=== PATIENT | male | born 1950 | race Caucasian/White ===

== ENCOUNTER 2023-04-21 07:38 | Inpatient (IN) ==
[2023-04-21] MEDS ORDERED: NS 0.9% 1000 ml BAG 1,000 ML IV ONE (08:25)
[2023-04-21] MEDS ORDERED: Acetaminophen IV 1 GM/100ML 1,000 MG/100 ML BAG IV ONE (08:26)
[2023-04-21 09:03] LABS: ABS Eosinophils 0.1 10^3/uL (0.0-0.5); ABS Monocytes 0.5 10^3/uL (0.0-1.1); ABS Neutrophils 6.5 10^3/uL (1.5-7.6); ABS Nucleated RBC 0.01 10^3/ul; Eosinophil % 1.4 %; Hematocrit 39.3 % (38-53); Hemoglobin 14.1 g/dL (13.2-16.3); Lymphocyte % 12.7 %; Mean Corpuscular Hemoglobin 33.9 pg (27-33); Mean Corpuscular Hgb Conc 35.8 g/dL (31-36); Mean Corpuscular Volume 94.7 fL (80-97); Mean Platelet Volume 8.9 fL (7.5-11.2); Nucleated Red Blood Cells % 0.2 %/100WBC (0.0-0.8); Platelet Count 124 10^3/uL (150-450); Red Blood Count 4.15 10^6/uL (4.06-5.63); Red Cell Distribution Width 14.6 % (12-17); White Blood Count 8.2 10^3/uL (3.6-10.2)
[2023-04-21 09:18] LABS: Calcium 9.1 mg/dL (8.6-10.3); Creatinine, Serum 0.77 mg/dL (0.67-1.17); Potassium 3.8 mmol/L (3.5-5.0); eGFR CKD-EPI 95.1 (>60)
[2023-04-21 09:22] LABS: Albumin 4.3 g/dL (3.2-5.2); Albumin/Globulin Ratio 1.7 (1-3); Globulin 2.5 g/dL (2-4); Total Bilirubin 1.9 mg/dL (0.2-1.0); Total Protein 6.8 g/dL (6.4-8.9)
[2023-04-21] MEDS: NS 0.9% 1000 ml BAG 1,000 ML IV SCH ×2 (12:19→19:56)
[2023-04-21] MEDS: Enoxaparin 40 MG/0.4 ML SYR SUBCUT SCH (16:33)
[2023-04-21 16:37] LABS: Urine Appearance Cloudy; Urine Bilirubin Negative (Negative); Urine Blood Negative (Negative); Urine Color Yellow; Urine Glucose Negative (Negative); Urine Ketones Trace (Negative); Urine Nitrite Negative (Negative); Urine Protein Negative (Negative); Urine Specific Gravity 1.024 (1.002-1.030); Urine Urobilinogen Negative (Negative)
[2023-04-21] MEDS ORDERED: Dextrose 50% Syringe 50 ml 25 GM/50 ML SYRINGE IV PUSH PRN (17:43)
[2023-04-21] MEDS: Carbidopa/Levodop CR 50/200 TAB.CR PO SCH (21:12)
[2023-04-21] MEDS: Carbidopa/Levodop 25/100 MG TAB PO SCH ×2 (21:13→23:04)
[2023-04-21] MEDS: Cholestyramine Resin 4 GM POWDER PO SCH (21:13)
[2023-04-22] MEDS: Carbidopa/Levodop 25/100 MG TAB PO SCH ×4 (01:24→20:31)
[2023-04-22] MEDS: Carbidopa/Levodop CR 50/200 TAB.CR PO SCH (01:24)
[2023-04-22] MEDS: NS 0.9% 1000 ml BAG 1,000 ML IV SCH ×3 (02:44→14:06)
[2023-04-22 06:37] LABS: ABS Eosinophils 0.1 10^3/uL (0.0-0.5); ABS Lymphocytes 1.4 10^3/uL (1.0-4.8); ABS Monocytes 0.4 10^3/uL (0.0-1.1); ABS Neutrophils 3.9 10^3/uL (1.5-7.6); ABS Nucleated RBC 0.01 10^3/ul; Eosinophil % 2.5 %; Hematocrit 32.8 % (38-53); Hemoglobin 11.6 g/dL (13.2-16.3); Lymphocyte % 23.1 %; Mean Corpuscular Hemoglobin 33.9 pg (27-33); Mean Corpuscular Hgb Conc 35.5 g/dL (31-36); Mean Corpuscular Volume 95.4 fL (80-97); Mean Platelet Volume 9.4 fL (7.5-11.2); Nucleated Red Blood Cells % 0.1 %/100WBC (0.0-0.8); Platelet Count 115 10^3/uL (150-450); Red Blood Count 3.44 10^6/uL (4.06-5.63); Red Cell Distribution Width 14.8 % (12-17); White Blood Count 5.9 10^3/uL (3.6-10.2)
[2023-04-22] MEDS ORDERED: CMCS:SitaGLIPtin 100 mg TAB (NF) PO SCH (09:00)
[2023-04-22] MEDS: Enoxaparin 40 MG/0.4 ML SYR SUBCUT SCH (14:11)
[2023-04-22] MEDS: Cholestyramine Resin 4 GM POWDER PO SCH (20:31)
[2023-04-23 08:37] LABS: ABS Eosinophils 0.2 10^3/uL (0.0-0.5); ABS Lymphocytes 1.2 10^3/uL (1.0-4.8); ABS Monocytes 0.4 10^3/uL (0.0-1.1); Eosinophil % 3.6 %; Hematocrit 33.9 % (38-53); Hemoglobin 12.2 g/dL (13.2-16.3); Lymphocyte % 25.7 %; Mean Corpuscular Hemoglobin 34.4 pg (27-33); Mean Corpuscular Volume 95.6 fL (80-97); Mean Platelet Volume 9.6 fL (7.5-11.2); Platelet Count 127 10^3/uL (150-450); Red Blood Count 3.55 10^6/uL (4.06-5.63); Red Cell Distribution Width 14.4 % (12-17); White Blood Count 4.8 10^3/uL (3.6-10.2)
[2023-04-23 08:51] LABS: Calcium 8.8 mg/dL (8.6-10.3); Creatinine, Serum 0.82 mg/dL (0.67-1.17); Potassium 4.1 mmol/L (3.5-5.0); eGFR CKD-EPI 93.3 (>60)
[2023-04-23 09:15] LABS: Folate 10.48 ng/mL (5.90-24.80)
[2023-04-23] MEDS ORDERED: Magnesium Hydroxide LIQ 30 ML UDC PO PRN (09:46)
[2023-04-23] MEDS ORDERED: Senna TAB 8.6 mg TAB PO PRN (09:46)
[2023-04-23] MEDS ORDERED: Polyethylene Glycol 3350 17 GM PACKET PO PRN (09:46)
[2023-04-23] MEDS: Carbidopa/Levodop 25/100 MG TAB PO SCH ×3 (09:55→20:07)
[2023-04-23 11:10] LABS: Total Bilirubin 0.6 mg/dL (0.2-1.0)
[2023-04-23] MEDS: Enoxaparin 40 MG/0.4 ML SYR SUBCUT SCH (14:58)
[2023-04-23] MEDS: Cholestyramine Resin 4 GM POWDER PO SCH (20:08)
[2023-04-24] MEDS: Carbidopa/Levodop 25/100 MG TAB PO SCH ×3 (10:57→21:55)
[2023-04-24] MEDS: Enoxaparin 40 MG/0.4 ML SYR SUBCUT SCH (12:40)
[2023-04-24] MEDS ORDERED: Cyanocobalamin INJ 1,000 MCG/ML VIAL 1 ML VIAL IM ONE (16:41)
[2023-04-24] MEDS: Cholestyramine Resin 4 GM POWDER PO SCH (21:54)
[2023-04-25] MEDS: Carbidopa/Levodop 25/100 MG TAB PO SCH ×3 (08:53→21:38)
[2023-04-25] MEDS: Enoxaparin 40 MG/0.4 ML SYR SUBCUT SCH (13:52)
[2023-04-25] MEDS: Cholestyramine Resin 4 GM POWDER PO SCH (21:39)
[2023-04-26] MEDS: Carbidopa/Levodop 25/100 MG TAB PO SCH (09:58)
[2023-04-26 10:01] VITALS: BP 110/67
== END 2023-04-26 10:00 | DRG 57 ==
LOC: ED 07:38 → EDHOLD 07:38 → SUATTDRO 11:48 → MED 16:21
PROVIDERS: ADMIT Student in an Organized Health Care Education/Training Program; ATTEND Student in an Organized Health Care Education/Training Program

== ENCOUNTER 2023-04-25 13:05 | Inpatient (IN) ==
[2023-04-26] MEDS ORDERED: Magnesium Hydroxide LIQ 30 ML UDC PO PRN (12:24)
[2023-04-26] MEDS ORDERED: Senna TAB 8.6 mg TAB PO PRN (12:24)
[2023-04-26] MEDS ORDERED: Enoxaparin 40 MG/0.4 ML SYR SUBCUT SCH (13:00)
[2023-04-26] MEDS: Enoxaparin 40 MG/0.4 ML SYR SUBCUT SCH (17:33)
[2023-04-26] MEDS: Cholestyramine Resin 4 GM POWDER PO SCH (21:36)
[2023-04-26] MEDS: Carbidopa/Levodop 25/100 MG TAB PO SCH (21:36)
[2023-04-27 09:08] LABS: ABS Eosinophils 0.2 10^3/uL (0.0-0.5); ABS Lymphocytes 1.1 10^3/uL (1.0-4.8); ABS Monocytes 0.4 10^3/uL (0.0-1.1); ABS Neutrophils 4.7 10^3/uL (1.5-7.6); ABS Nucleated RBC 0.01 10^3/ul; Eosinophil % 2.5 %; Hematocrit 36.5 % (38-53); Hemoglobin 12.8 g/dL (13.2-16.3); Lymphocyte % 17.9 %; Mean Corpuscular Hemoglobin 33.9 pg (27-33); Mean Corpuscular Hgb Conc 35.2 g/dL (31-36); Mean Corpuscular Volume 96.1 fL (80-97); Mean Platelet Volume 8.6 fL (7.5-11.2); Nucleated Red Blood Cells % 0.1 %/100WBC (0.0-0.8); Platelet Count 166 10^3/uL (150-450); Red Blood Count 3.79 10^6/uL (4.06-5.63); Red Cell Distribution Width 15.1 % (12-17); White Blood Count 6.4 10^3/uL (3.6-10.2)
[2023-04-27 09:32] LABS: Albumin 4.2 g/dL (3.2-5.2); Albumin/Globulin Ratio 1.6 (1-3); Calcium 9.4 mg/dL (8.6-10.3); Creatinine, Serum 0.84 mg/dL (0.67-1.17); Globulin 2.6 g/dL (2-4); Potassium 4.2 mmol/L (3.5-5.0); Total Bilirubin 0.7 mg/dL (0.2-1.0); Total Protein 6.8 g/dL (6.4-8.9); eGFR CKD-EPI 92.7 (>60)
[2023-04-27] MEDS: Carbidopa/Levodop 25/100 MG TAB PO SCH ×3 (09:35→20:54)
[2023-04-27] MEDS: Enoxaparin 40 MG/0.4 ML SYR SUBCUT SCH (17:33)
[2023-04-27] MEDS: Cholestyramine Resin 4 GM POWDER PO SCH (21:01)
[2023-04-28] MEDS: Carbidopa/Levodop 25/100 MG TAB PO SCH ×3 (08:46→20:58)
[2023-04-28] MEDS: Enoxaparin 40 MG/0.4 ML SYR SUBCUT SCH (16:50)
[2023-04-28] MEDS: Cholestyramine Resin 4 GM POWDER PO SCH (22:46)
[2023-04-29] MEDS: Carbidopa/Levodop 25/100 MG TAB PO SCH ×3 (10:08→20:49)
[2023-04-29] MEDS: Enoxaparin 40 MG/0.4 ML SYR SUBCUT SCH (18:08)
[2023-04-29] MEDS: Cholestyramine Resin 4 GM POWDER PO SCH (22:20)
[2023-04-30] MEDS: Carbidopa/Levodop 25/100 MG TAB PO SCH ×3 (08:04→21:06)
[2023-04-30] MEDS: Enoxaparin 40 MG/0.4 ML SYR SUBCUT SCH (17:20)
[2023-04-30] MEDS: Cholestyramine Resin 4 GM POWDER PO SCH (21:08)
[2023-05-01] MEDS: Carbidopa/Levodop 25/100 MG TAB PO SCH ×3 (08:38→20:55)
[2023-05-01] MEDS: Enoxaparin 40 MG/0.4 ML SYR SUBCUT SCH (17:18)
[2023-05-01] MEDS: Cholestyramine Resin 4 GM POWDER PO SCH (21:01)
[2023-05-02] MEDS: Carbidopa/Levodop 25/100 MG TAB PO SCH ×3 (08:31→21:08)
[2023-05-02] MEDS: Enoxaparin 40 MG/0.4 ML SYR SUBCUT SCH (17:30)
[2023-05-02] MEDS: Cholestyramine Resin 4 GM POWDER PO SCH (21:10)
[2023-05-03] MEDS: Carbidopa/Levodop 25/100 MG TAB PO SCH ×3 (08:59→21:49)
[2023-05-03] MEDS: Enoxaparin 40 MG/0.4 ML SYR SUBCUT SCH (16:43)
[2023-05-03] MEDS: Cholestyramine Resin 4 GM POWDER PO SCH ×2 (21:49→21:51)
[2023-05-04 07:32] LABS: ABS Eosinophils 0.1 10^3/uL (0.0-0.5); ABS Lymphocytes 1.4 10^3/uL (1.0-4.8); ABS Monocytes 0.5 10^3/uL (0.0-1.1); ABS Neutrophils 4.1 10^3/uL (1.5-7.6); Eosinophil % 1.7 %; Hematocrit 36.4 % (38-53); Hemoglobin 12.9 g/dL (13.2-16.3); Lymphocyte % 22.6 %; Mean Corpuscular Hemoglobin 33.5 pg (27-33); Mean Corpuscular Hgb Conc 35.4 g/dL (31-36); Mean Corpuscular Volume 94.5 fL (80-97); Mean Platelet Volume 8.3 fL (7.5-11.2); Nucleated Red Blood Cells % 0.1 %/100WBC (0.0-0.8); Platelet Count 152 10^3/uL (150-450); Red Blood Count 3.85 10^6/uL (4.06-5.63); Red Cell Distribution Width 15.1 % (12-17); White Blood Count 6.1 10^3/uL (3.6-10.2)
[2023-05-04 07:49] LABS: Albumin 4.4 g/dL (3.2-5.2); Albumin/Globulin Ratio 1.8 (1-3); Calcium 9.5 mg/dL (8.6-10.3); Creatinine, Serum 0.88 mg/dL (0.67-1.17); Globulin 2.5 g/dL (2-4); Potassium 3.9 mmol/L (3.5-5.0); Total Bilirubin 0.8 mg/dL (0.2-1.0); Total Protein 6.9 g/dL (6.4-8.9); eGFR CKD-EPI 91.4 (>60)
[2023-05-04] MEDS: Carbidopa/Levodop 25/100 MG TAB PO SCH ×3 (08:31→22:04)
[2023-05-04] MEDS: Enoxaparin 40 MG/0.4 ML SYR SUBCUT SCH (16:22)
[2023-05-04] MEDS: Cholestyramine Resin 4 GM POWDER PO SCH ×2 (22:04→22:05)
[2023-05-05] MEDS: Carbidopa/Levodop 25/100 MG TAB PO SCH ×3 (07:40→21:00)
[2023-05-05] MEDS: Enoxaparin 40 MG/0.4 ML SYR SUBCUT SCH (16:50)
[2023-05-05] MEDS: Cholestyramine Resin 4 GM POWDER PO SCH (21:01)
[2023-05-06] MEDS: Carbidopa/Levodop 25/100 MG TAB PO SCH ×3 (08:15→21:22)
[2023-05-06] MEDS: Enoxaparin 40 MG/0.4 ML SYR SUBCUT SCH (17:27)
[2023-05-06] MEDS: Cholestyramine Resin 4 GM POWDER PO SCH (21:20)
[2023-05-07] MEDS: Carbidopa/Levodop 25/100 MG TAB PO SCH ×3 (09:38→20:57)
[2023-05-07] MEDS: Enoxaparin 40 MG/0.4 ML SYR SUBCUT SCH (17:39)
[2023-05-07] MEDS: Cholestyramine Resin 4 GM POWDER PO SCH (20:57)
[2023-05-08] MEDS: Carbidopa/Levodop 25/100 MG TAB PO SCH ×3 (08:09→20:20)
[2023-05-08] MEDS: Enoxaparin 40 MG/0.4 ML SYR SUBCUT SCH (17:28)
[2023-05-08] MEDS: Cholestyramine Resin 4 GM POWDER PO SCH (20:12)
[2023-05-09] MEDS: Carbidopa/Levodop 25/100 MG TAB PO SCH ×3 (08:31→21:02)
[2023-05-09] MEDS: Enoxaparin 40 MG/0.4 ML SYR SUBCUT SCH (17:29)
[2023-05-09] MEDS: Cholestyramine Resin 4 GM POWDER PO SCH (21:02)
[2023-05-10 04:18] VITALS: BP 123/66
[2023-05-10] MEDS: Carbidopa/Levodop 25/100 MG TAB PO SCH (08:38)
== END 2023-05-10 11:50 | disposition home or self-care (01) | DRG 57 ==
LOC: PMRU 04-26 11:07
PROVIDERS: ADMIT Physical Medicine & Rehabilitation; ATTEND Physical Medicine & Rehabilitation